=== PATIENT | female | born 1950 | race Caucasian/White ===

== ENCOUNTER → 2017-10-08 | Outpatient (CLI) | payer MEDICARE, OTHER ==
[~2017-10-08] MED LIST: CONESTTC PV; LEVSOD50 PO; LEVSOD75 PO; PROACE100 PO; PROG100 PO; RXPROACE PO; TRAM50 PO
== END | disposition home or self-care (01) ==
LOC: PLD 07:05
DX: N84.0 Polyp of corpus uteri (principal); N84.1 Polyp of cervix uteri; N95.0 Postmenopausal bleeding
CPT/HCPCS: 88305

== ENCOUNTER → 2018-02-26 | Outpatient (CLI) | payer MEDICARE, OTHER | LOC: LAB SHORT 12:36 → OLS 12:36 | PROVIDERS: Obstetrics & Gynecology Gynecology | DX: N89.8 Other specified noninflammatory disorders of vagina (principal); Z91.89 Other specified personal risk factors, not elsewhere classified | CPT/HCPCS: 87070; 87624; G0123 ==

== ENCOUNTER → 2019-05-25 | Outpatient (CLI) | payer MEDICARE, OTHER ==
[2019-05-27 14:07] LABS: HPV 16 Negative (Negative); HPV 18 Negative (Negative); HPV OTHER HR TYPES Negative (Negative)
== END | disposition home or self-care (01) ==
LOC: LAB 13:53 → LAB SHORT 13:53
PROVIDERS: Obstetrics & Gynecology Gynecology
DX: Z91.89 Other specified personal risk factors, not elsewhere classified (principal)
CPT/HCPCS: 87624; G0123

== ENCOUNTER 2024-07-19 11:58 | Day surgery (SDC) | payer MEDICARE, OTHER ==
[~2024-07-19] VITALS: Ht 167.6 cm; Wt 67.2 kg
[~2024-07-19 11:58] MED LIST changes: +Balanced Salt Epinephrine Irrigation Solution 500 mL IR SCH; +Lidocaine HCl/Pf 1% 5 ML VIAL XX SCH; +Moxifloxacin HCL 0.5 MG/0.1 ML 0.4MLSYR RIGHTEYE SCH; +PHENYLEPHRINE\\TROPICAMIDE\\TETRACAINE OPHTHALMIC DILATING SOLN RIGHTEYE PRN; +Povidone-Iodine 450 DROP/30 ML Solution RIGHTEYE SCH
[2024-07-19] MEDS ORDERED: MONT10T PO (12:33)
[2024-07-19] MEDS ORDERED: ESTRADIOL (TWI1 EAC3 (12:34)
[2024-07-19] MEDS ORDERED: FentaNYL Citrate 50 MCG/ML 2 ML Injection ONE (12:42)
[2024-07-19] MEDS ORDERED: Midazolam HCl 1MG / ML 2ML Vial ONE (12:42)
[2024-07-19] MEDS ORDERED: Tetracaine HCl 0.5% Opth Soln 15 ml RIGHTEYE ONE (13:10)
[2024-07-19 13:33] VITALS: BP 145/83
== END 2024-07-19 13:47 | disposition home or self-care (01) ==
LOC: ORSCSDS 11:58
PROVIDERS: Student in an Organized Health Care Education/Training Program
PROC: 08RJ3JZ Replacement of Right Lens with Synthetic Substitute, Percutaneous Approach (ICD-10-PCS; principal; 2024-07-19 13:45)
DX: H25.813 Combined forms of age-related cataract, bilateral (principal); E05.00 Thyrotoxicosis with diffuse goiter without thyrotoxic crisis or storm; Z79.899 Other long term (current) drug therapy
CPT/HCPCS: J2250; J3010; V2632